=== PATIENT | female | born 1955 | race Caucasian/White ===

== ENCOUNTER 2021-03-19 08:52 | Emergency (ER) | payer OTHER ==
[~2021-03-19] VITALS: Ht 162.6 cm; Wt 86.2 kg
[~2021-03-19 08:52] MED LIST: AVAPRO300 MG; CARDURA XL4 MG/BOTTL; CARVEDILOL25 MG; CLONAZEPAM0.5 MG; HYDROCHLOROTHIA25 MG; MYOCALM TABLET1 EACH; WELLBUTRIN75 MG
== END 2021-03-19 09:12 | disposition home or self-care (01) ==
LOC: ER 08:52
DX: M62.838 Other muscle spasm (principal); I10 Essential (primary) hypertension

== ENCOUNTER 2024-06-03 16:39 | Inpatient (IN) | payer OTHER ==
[~2024-06-03] VITALS: Ht 162.6 cm; Wt 77.1 kg
[2024-06-03] MEDS ORDERED: LEVALBUTEROL HCL 1.25 MG/3 ML SOLUTION IH SCH ×2 (17:30→20:08)
[2024-06-03] MEDS ORDERED: levoFLOXacin IN DEXTROSE 5 % 5 MG/ML PIGGYBAG IV ONE (17:30)
[2024-06-03] MEDS ORDERED: 0.9 % SODIUM CHLORIDE 1,000 ML IV SCH ×2 (17:30→20:00)
[2024-06-03] MEDS ORDERED: METHYLPREDNISOLONE SOD SUCC 125 MG VIAL IV ONE (17:30)
[2024-06-03] MEDS ORDERED: GUAIFENESIN/DEXTROMETHORPHAN 100MG/10ML BLIST.PACK PO ONE (17:30)
[2024-06-03] MEDS ORDERED: METHYLPREDNISOLONE SOD SUCC 125 MG VIAL ONE (17:43)
[2024-06-03 18:13] LABS: HEMATOCRIT 40.9 % (36.0-45.00); MEAN CELL VOLUME 94.5 fL (80.00-100.00); MEAN CORPUSCULAR HEMOGLOBIN 32.4 pg (27.00-32.0); MEAN CORPUSCULAR HGB CONC 34.3 g/dl (32.0-36.0); PLATELET COUNT 263 K/uL (150-450); RED BLOOD COUNT 4.33 M/uL (4.00-6.00); RED CELL DISTRIBUTION WIDTH 14.2 % (11.5-14.5)
[2024-06-03 18:39] LABS: ALBUMIN 3.7 gm/dL (3.4-5.0); BILIRUBIN TOTAL 0.41 mg/dL (0.3-1.2); CALCIUM 10.2 mg/dL (8.5-10.1); CREATININE SERUM 0.9 mg/dL (0.55-1.02); GFR 62.26; GLOBULINA 3.8 G/DL (2.4-3.5); POTASSIUM 3.59 mEq/L (3.5-5.1); TOTAL PROTEIN 7.5 gm/dL (6.4-8.2)
[2024-06-03 19:03] LABS: ABG PH 7.472 (7.35-7.45); ABG pCO2 38.3 mmHg (35-45); BASE EXCESS 3.7 mmol/l; BICARBONATE 27.4 mmol/l (23-25); SaO2 95.7 %; Tco2 28.6 mmol/l
[2024-06-03] MEDS ORDERED: IPRATROPIUM BROMIDE 0.5 MG/2.5 ML AMPUL.NEB IH SCH ×2 (19:57→20:08)
[2024-06-03] MEDS ORDERED: FAMOTIDINE/PF 20 MG in 0.9 % SODIUM CHLORIDE 8 ML IV PUSH SCH (19:59)
[2024-06-03] MEDS ORDERED: AMLODIPINE BESYLATE 5 MG TABLET PO SCH (20:00)
[2024-06-03] MEDS ORDERED: ACETAMINOPHEN 500 MG GEL..CAP PO PRN (20:00)
[2024-06-03] MEDS ORDERED: AZITHROMYCIN 500 MG in DEXTROSE 5 % IN WATER 250 ML IV SCH (20:02)
[2024-06-03] MEDS ORDERED: VANCOMYCIN HCL 1,000 MG VIAL IV SCH (20:04)
[2024-06-03 20:09] LABS: allen test SATISFACTORY; puncture site RADIAL RIGHT
[2024-06-03 20:10] LABS: o2 21 %
[2024-06-03] MEDS ORDERED: AZITHROMYCIN 500 MG VIAL IV ONE (20:21)
[2024-06-03] MEDS ORDERED: GUAIFEN/DEXTROMETHORPHAN/PE 10 ML BLIST.PACK PO SCH (21:00)
[2024-06-03] MEDS ORDERED: CARVEDILOL 25 MG TABLET PO SCH (21:00)
[2024-06-03] MEDS ORDERED: GUAIFEN/DEXTROMETHORPHAN/PE 10 ML BLIST.PACK PO ONE (21:13)
[2024-06-03] MEDS ORDERED: VANCOMYCIN HCL 1,000 MG VIAL ONE (21:13)
[2024-06-03] MEDS ORDERED: FAMOTIDINE/PF 20 MG/2 ML VIAL ONE (21:14)
[2024-06-03 21:17] LABS: INR 1.1; PARTIAL THROMBOPLASTIN TIME 33.2 SECONDS (22.0-34.0); PROTHROMBIN TIME 11.9 SECONDS (9.0-11.5)
[2024-06-03 22:16] VITALS: BP 136/80; O2SAT 97
[2024-06-03 23:15] LABS: URINE APPEARANCE Turbid; URINE BILIRRUBIN Negative (NEGATIVE); URINE BLOOD Negative; URINE COLOR Yellow; URINE GLUCOSE Negative (NEGATIVE); URINE KETONE Negative (NEGATIVE); URINE LEUKOCYTE Negative; URINE NITRATE Negative; URINE PROTEIN Negative (NEGATIVE); URINE UROBILINOGEN 0.2 E.U./dl
[2024-06-03 23:18] LABS: URINE BACTERIA 4.8 uL (0.0-1933); URINE RBC 11.3 uL (0.0-20.8); URINE WBC 1.8 uL (0.0-23.2)
[2024-06-03 23:58] LABS: URINE CAST 0.14 uL (0.0-1.40); URINE EPITHELIAL CELLS 0.7 uL (0.0-38.8)
[2024-06-04] VITALS: BP 143/82; O2SAT 97
[2024-06-04 08:22] VITALS: BP 178/100
[2024-06-04] MEDS ORDERED: IRBESARTAN 150 MG TABLET PO SCH (09:00)
[2024-06-04] MEDS ORDERED: AZITHROMYCIN 500 MG VIAL IV SCH (09:00)
[2024-06-04] MEDS ORDERED: LORATADINE 10 MG TABLET PO SCH (09:00)
[2024-06-04] MEDS ORDERED: METHYLPREDNISOLONE SOD SUCC 40 MG VIAL IV SCH ×2 (09:00→13:00)
[2024-06-04] MEDS ORDERED: CEFTRIAXONE SODIUM 2,000 MG in 0.9 % SODIUM CHLORIDE 100 ML IV SCH (09:00)
[2024-06-04] MEDS ORDERED: ENOXAPARIN SODIUM 40 MG/0.4 ML SYRINGE SUBCUTANEO SCH (09:00)
[2024-06-04] MEDS ORDERED: AZITHROMYCIN 500 MG VIAL IV ONE (09:06)
[2024-06-04] MEDS ORDERED: levoFLOXacin IN DEXTROSE 5 % 150 ML IV SCH (09:20)
[2024-06-04] MEDS ORDERED: FLUTICASONE PROPIONATE 50 MCG SPRAY NASAL SCH (09:27)
[2024-06-04 13:10] LABS: MYCOPLASMA PNEUMONIAE IGM NON REACTIVE (NO REACTIVE)
[2024-06-04] MEDS ORDERED: VANCOMYCIN HCL 5 MG/ML REDILUIDO IV SCH ×2 (17:00→21:00)
[2024-06-04] MEDS ORDERED: LACTOBACILLUS ACIDOPHILUS 1 CAP CAP PO SCH (17:00)
[2024-06-04 17:05] VITALS: BP 155/89; O2SAT 98
[2024-06-04] MEDS ORDERED: CEFEPIME HCL 2,000 MG VIAL IV SCH (21:00)
[2024-06-05] VITALS: BP 142/85; O2SAT 96
[2024-06-05] MEDS ORDERED: VANCOMYCIN HCL 5 MG/ML REDILUIDO IV SCH (09:00)
[2024-06-05 09:25] VITALS: BP 165/93
[2024-06-05 17:21] VITALS: BP 156/82; O2SAT 98
[2024-06-05] MEDS ORDERED: ZOLPIDEM TARTRATE 5 MG TABLET PO SCH (21:00)
[2024-06-05] MEDS ORDERED: FAMOtidine 20 MG TABLET PO SCH (21:00)
[2024-06-06 02:16] VITALS: BP 140/96
[2024-06-06] MEDS ORDERED: FAMOtidine 20 MG TABLET PO SCH (09:00)
[2024-06-06 09:01] VITALS: BP 144/80; O2SAT 98
[2024-06-06 16:15] VITALS: BP 140/68; O2SAT 99
[2024-06-07 02:31] VITALS: BP 178/94; O2SAT 96
[2024-06-07 08:08] LABS: ALBUMIN 2.8 gm/dL (3.4-5.0); BILIRUBIN TOTAL 0.33 mg/dL (0.3-1.2); CALCIUM 8.9 mg/dL (8.5-10.1); CREATININE SERUM 0.44 mg/dL (0.55-1.02); GFR 142.2; GLOBULINA 2.9 G/DL (2.4-3.5); POTASSIUM 4.23 mEq/L (3.5-5.1); TOTAL PROTEIN 5.7 gm/dL (6.4-8.2)
[2024-06-07 08:45] VITALS: BP 185/92; O2SAT 98
[2024-06-07 08:59] LABS: HEMOGLOBIN 12.6 g/dL (12.0-15.00); MEAN CELL VOLUME 95.7 fL (80.00-100.00); MEAN CORPUSCULAR HEMOGLOBIN 32.5 pg (27.00-32.0); MEAN CORPUSCULAR HGB CONC 33.9 g/dl (32.0-36.0); PLATELET COUNT 231 K/uL (150-450); RED BLOOD COUNT 3.87 M/uL (4.00-6.00); RED CELL DISTRIBUTION WIDTH 13.4 % (11.5-14.5)
[2024-06-07] MEDS ORDERED: IRBESARTAN 300 MG TABLET PO SCH (09:00)
[2024-06-07 10:23] VITALS: BP 160/88
[2024-06-07 16:00] VITALS: BP 161/91; O2SAT 99
[2024-06-07] MEDS ORDERED: AMLODIPINE BESYLATE 10 MG TABLET PO SCH (17:00)
[2024-06-07] MEDS ORDERED: METHYLPREDNISOLONE SOD SUCC 40 MG VIAL IV SCH ×2 (17:29→21:00)
[2024-06-08 02:25] VITALS: BP 143/86
[2024-06-08] MEDS ORDERED: IRBESARTAN 300 MG TABLET PO SCH (09:00)
[2024-06-08 09:31] VITALS: BP 163/87; O2SAT 98
[2024-06-08 16:40] VITALS: BP 174/87; O2SAT 97
[2024-06-09 01:09] VITALS: BP 151/85; O2SAT 96
[2024-06-09] MEDS ORDERED: AMOX-CLAV 875-1 EACH PO (08:22)
[2024-06-09] MEDS ORDERED: MEDROLPACK PO (08:22)
[2024-06-09] MEDS ORDERED: INTESTINEX680 M1 PO (08:22)
[2024-06-09] MEDS ORDERED: XOPENEX HFA15 GM IH (08:23)
[2024-06-09 09:19] VITALS: BP 169/93; O2SAT 94
== END 2024-06-09 11:02 | disposition home or self-care (01) | DRG 194 ==
LOC: ER 16:41 → MEDI 20:17 → SEC-K 20:17 → MEDI 21:38
PROVIDERS: General Practice; Internal Medicine; ADMIT Internal Medicine; ATTEND Internal Medicine
PROC: BW24ZZZ Computerized Tomography (CT Scan) of Chest and Abdomen (ICD-10-PCS; principal; 2024-06-03)
DX: J18.9 Pneumonia, unspecified organism (principal); J45.901 Unspecified asthma with (acute) exacerbation; R09.02 Hypoxemia; I10 Essential (primary) hypertension; J01.80 Other acute sinusitis